=== PATIENT | female | born 1945 | race Caucasian/White ===

== ENCOUNTER 2020-04-12 19:32 | Inpatient (IN) | payer BC, OTHER ==
[~2020-04-12] VITALS: Ht 167.6 cm; Wt 81.7 kg
--- NOTE | 2020-04-12 20:12 | NUR ---
PT BIBPA FOR COUGH [id number]. PT DENIES YELLOW OR GREEN SPUTUM. PT AAOX4 VSS, BUT A FEVER OF 100.1. PT DENIES PAIN OR SOB. PT CONNECTED TO THE MONITOR AND POX. CALL LIGHT WITHIN REACH. WILL CONTINUE TO MONITOR.
--- NOTE | 2020-04-12 20:45 | NUR ---
covid swab collected and sent to lab
--- NOTE | 2020-04-12 22:09 | NUR ---
O2 SAT NOTED 92% ROOM AIR, PLACED ON 2L NC TOLERATING WELL O2 SAT 100%
--- NOTE | 2020-04-12 22:20 | NUR ---
IV INITIATED LAC 18G. LABS DRAWN FROM SITE. CIRCUS HAND AT BEDSIDE FOR COLLECTION. IV INTACT AND PATENT, PLACED ON SALINE LOCK
[2020-04-12 22:34] LABS: BASOPHILS # (AUTO) 0.1 /CMM (0.0-0.2); BASOPHILS % (AUTO) 0.9 % (0.0-2.0); EOSINOPHILS % (AUTO) 2.8 % (0.0-6.0); HEMATOCRIT 41 % (33-45); HEMOGLOBIN 13.7 g/dL (11.5-14.8); LYMPHOCYTES # (AUTO) 1.3 /CMM (0.8-4.8); LYMPHOCYTES % (AUTO) 19.3 % (20.0-44.0); MEAN CORPUSCULAR HGB CONC 33 g/dl (31.0-36.0); MEAN CORPUSCULAR VOLUME 91 fL (82-100); MONOCYTES # (AUTO) 0.7 /CMM (0.1-1.30); MONOCYTES % (AUTO) 10.2 % (2.0-12.0); NEUTROPHILS # (AUTO) 4.6 /CMM (1.8-8.9); NEUTROPHILS % (AUTO) 66.8 % (43.0-81.0); PLATELET COUNT (AUTO) 194 /CMM (150-450); RED BLOOD CELL COUNT(AUTO) 4.53 MIL/uL (4.0-5.2); WHITE BLOOD COUNT (AUTO) 6.9 K/uL (4.3-11.0)
[2020-04-12 22:49] LABS: CARBON DIOXIDE 29 mmol/L (21-32); CHLORIDE 104 mmol/L (98-107); CREATININE 1.3 mg/dL (0.6-1.3); GLUCOSE 93 mg/dL (74-106); POTASSIUM 4.2 mmol/L (3.5-5.1); SODIUM SERUM 140 mmol/L (136-145); UREA NITROGEN, BLOOD 16 mg/dL (7-18)
--- NOTE | 2020-04-12 22:53 | NUR ---
URINE COLLECTED AND SENT TO LAB
[2020-04-12 22:57] LABS: BILIRUBIN,URINE Negative (NEGATIVE); BLOOD, URINE Small Ery/uL (NEGATIVE); COLOR,URINE YELLOW (YELLOW); LEUKOCYTE ESTERASE ,URINE Small (NEGATIVE); NITRITE, URINE Positive (NEGATIVE); PH,URINE 5.5 (5.0-8.0); PROTEIN,URINE Negative (NEGATIVE); UGLUCOSE Negative (NEGATIVE); UROBILINOGEN,URINE 0.2 EU/dL (0.2)
[2020-04-12] MEDS ORDERED: DEXAMETHASONE SOD PHOSPHATE 10 MG/ML VIAL IV ONE (23:00)
[2020-04-12] MEDS ORDERED: AZITHROMYCIN 500 MG in IV D5W 250 ML IV ONE (23:00)
[2020-04-12 23:01] LABS: ALANINE AMINOTRANSFERASE 17 U/L (12-78); ALKALINE PHOSPHATASE 83 U/L (46-116); ASPARTATE AMINOTRANSFERASE 45 U/L (15-37); B-TYPE NATRIURETIC PEPTIDE 235 PG/ML (0-125); BILIRUBIN,TOTAL 0.6 mg/dL (0.2-1.0); TOTAL PROTEIN, SERUM 6.9 g/dL (6.4-8.2)
[2020-04-12] MEDS ORDERED: AZITHROMYCIN 500 MG VIAL ONE (23:17)
[2020-04-12 23:24] LABS: BACTERIA,URINE Many /HPF (None Seen); SQUAMOUS EPITHELIAL CELL,UR Few /HPF (None Seen); WBC,URINE TOO NUMEROUS TO COUN /HPF (0-3)
[2020-04-12] MEDS ORDERED: ONDANSETRON HCL/PF 4 MG/2 ML VIAL IVP PRN (23:30)
[2020-04-12] MEDS ORDERED: ALBUTEROL SULFATE 8 GM HFA.AER.AD IH PRN (23:30)
[2020-04-12] MEDS ORDERED: ACETAMINOPHEN 650 MG/SUPP.RECT RC PRN (23:30)
[2020-04-12 23:45] LABS: CREATINE KINASE, TOTAL 37 U/L (26-192); FERRITIN 119 ng/mL (8-388)
[2020-04-12 23:47] LABS: C-REACTIVE PROTEIN 1.5 mg/dL (0.0-0.9)
[2020-04-13 01:12] LABS: D-DIMER 0.85 mg/L(FEU (0.17-0.50)
[2020-04-13] MEDS ORDERED: CEFTRIAXONE 1GM BAG (ER ONLY) 50 ML IV ONE ×2 (02:57→23:43)
[2020-04-13] MEDS: CEFTRIAXONE 1 G in IV D5W 50 ML IV SCH (03:08)
--- NOTE | 2020-04-13 04:31 | NUR ---
PT RESTING COMFORTABLY IN BED. VITAL SIGNS STABLE. WILL CONTINUE TO MONITOR
[2020-04-13 05:51] LABS: BASOPHILS # (AUTO) 0.1 /CMM (0.0-0.2); BASOPHILS % (AUTO) 1.2 % (0.0-2.0); EOSINOPHILS % (AUTO) 3.4 % (0.0-6.0); HEMATOCRIT 42 % (33-45); HEMOGLOBIN 13.8 g/dL (11.5-14.8); LYMPHOCYTES # (AUTO) 1.3 /CMM (0.8-4.8); LYMPHOCYTES % (AUTO) 24.5 % (20.0-44.0); MEAN CORPUSCULAR HGB CONC 33 g/dl (31.0-36.0); MEAN CORPUSCULAR VOLUME 92 fL (82-100); MONOCYTES # (AUTO) 0.8 /CMM (0.1-1.30); MONOCYTES % (AUTO) 14.5 % (2.0-12.0); NEUTROPHILS % (AUTO) 56.4 % (43.0-81.0); PLATELET COUNT (AUTO) 179 /CMM (150-450); RED BLOOD CELL COUNT(AUTO) 4.59 MIL/uL (4.0-5.2); WHITE BLOOD COUNT (AUTO) 5.4 K/uL (4.3-11.0)
[2020-04-13 06:06] LABS: ALBUMIN 2.8 g/dL (3.4-5.0); BILIRUBIN,TOTAL 0.5 mg/dL (0.2-1.0); CALCIUM, SERUM 8.8 mg/dL (8.5-10.1); CREATININE 1.3 mg/dL (0.6-1.3); MAGNESIUM 2.1 mg/dL (1.8-2.4); PHOSPHORUS 3.2 mg/dL (2.5-4.9); POTASSIUM 4.1 mmol/L (3.5-5.1); TOTAL PROTEIN, SERUM 6.7 g/dL (6.4-8.2)
[2020-04-13 06:21] LABS: THYROID STIMULATING HORMONE 0.118 uIU/mL (0.358-3.74)
[2020-04-13] MEDS ORDERED: SENN-175 PO (08:04)
[2020-04-13] MEDS ORDERED: OMEP40CA13 PO (08:04)
[2020-04-13] MEDS ORDERED: ASPI-1169 PO (08:04)
[2020-04-13] MEDS ORDERED: TRAM50TA2 PO (08:04)
[2020-04-13] MEDS ORDERED: ROSU10TA29 PO (08:04)
[2020-04-13] MEDS ORDERED: LEVO100T9 PO (08:04)
[2020-04-13] MEDS ORDERED: IPRA3AMP22 IH (08:04)
[2020-04-13] MEDS ORDERED: MULT-439 PO (08:04)
[2020-04-13] MEDS ORDERED: CHOL500062 PO (08:04)
[2020-04-13] MEDS ORDERED: BUDE10.2 PO (08:04)
[2020-04-13] MEDS ORDERED: ASCO500C17 PO (08:04)
[2020-04-13] MEDS ORDERED: ZINC1CAP3 PO (08:04)
[2020-04-13] MEDS ORDERED: MAGN400O6 PO (08:04)
[2020-04-13] MEDS ORDERED: ACET325T53 PO (08:04)
--- NOTE | 2020-04-13 19:35 | NUR ---
Call from [facility] nurse outreach case manager. No bed available.
[2020-04-14] VITALS (7 sets, daily range): BP systolic 126–138; BP diastolic 63–84
[2020-04-14] MEDS ORDERED: AZITHROMYCIN 500 MG in IV D5W 250 ML IV SCH ×2
[2020-04-14] MEDS: CEFTRIAXONE 1 G in IV D5W 50 ML IV SCH ×2 (00:05→22:58)
--- NOTE | 2020-04-14 00:49 | NUR ---
REPORT GIVEN TO ORLANDO GEORGE FOR PRISCILLA.
--- NOTE | 2020-04-14 01:05 | NUR ---
PATIENT CAME FROM ER,AWAKE,A/O X2,FORGETFUL, WITH PERIODS OF CONFUSION. NO S/S OF DISTRESS NOTED. NO COMPLAIN OF PAIN. CALL LIGHT WITHIN REACH. BED ALARM ON. BED IN LOWEST AND LOCKED POSITION. WITH O2 AT 3L/MIN NASAL CANNULA.
--- NOTE | 2020-04-14 05:35 | NUR ---
med zithromax 500mg IV NOT AVAILABLE ON THE FLOOR, REQUEST FAXED TO NURSING TECHNOLOGY APPLICATIONS TEACHER.
--- NOTE | 2020-04-14 07:25 | NUR ---
BIOFUELS RESEARCH SCIENTIST NOTES PATIENT RECEIVED IN BED SLEEPING EASILY AWAKEN BY NAME AND LIGHT TOUCH, ALERT AND ORIENTED X 2, FORGETFUL BUT EASILY REORIENTED. PATIENT ON NASAL CANNULA 2 LITERS AT THIS TIME, WITH NO SIGNS OF RESPIRATORY DISTRESS WITH EVEN NON-LABORED BREATHING, AND NO SOB NOTED. ON MOTORCYLES FINAL INSPECTOR, SR 100. PATIENT SKIN WARM AND DRY TO TOUCH, IV ACCESS INTACT AND PATENT. PATIENT PRESENTING WITH NO PAIN OR DISCOMFORT AT THIS TIME. SAFETY PRECAUTIONS IMPLEMENTED WITH BED LOCKED, BED IN THE LOWEST POSITION, BED ALARM ON, BILATERAL SIDE RAILS UP, AND CALL LIGHT WITHIN EASY REACH OF PATENT. WILL CONTINUE TO MONITOR.
[2020-04-14] MEDS ORDERED: Medication Not On Formulary EA (Ipratropium/Albuterol Sulfate (Ipratr-Albuterol 0.5-3 Mg IH PRN (09:30)
[2020-04-14] MEDS ORDERED: SENNOSIDES 8.6 MG TABLET PO PRN (09:30)
[2020-04-14] MEDS ORDERED: ACETAMINOPHEN 325 MG TABLET PO PRN (09:30)
[2020-04-14] MEDS ORDERED: MAGNESIUM HYDROXIDE 30 ML UDC PO PRN (09:30)
[2020-04-14] MEDS ORDERED: ALBUTEROL FS 2.5 MG/0.5 ML VIAL.NEB NEB PRN (10:00)
[2020-04-14] MEDS ORDERED: IPRATROPIUM NEB FS 0.5 MG/2.5 ML AMPUL.NEB NEB PRN (10:00)
[2020-04-14] MEDS: PANTOPRAZOLE 40 MG TABLET.DR PO SCH (10:41)
[2020-04-14] MEDS: CHOLECALCIFEROL 1,000 UNIT TABLET (VIT D3) PO SCH (10:41)
[2020-04-14] MEDS: ZINC SULFATE 220 MG CAPSULE PO SCH (10:41)
[2020-04-14] MEDS: MULTIVIT W/MINERALS 1 TAB TABLET PO SCH (10:42)
[2020-04-14] MEDS: ASCORBIC ACID 500 MG TABLET PO SCH (10:42)
[2020-04-14] MEDS: LEVOTHYROXINE SODIUM 100 MCG TABLET PO SCH (10:42)
[2020-04-14] MEDS ORDERED: FLUTICASONE/VILANTEROL 1 EACH BLST.W.DEV IH SCH (14:00)
[2020-04-14] MEDS: ENOXAPARIN SODIUM 40 MG/0.4 ML DISP.SYRIN SQ SCH (15:36)
[2020-04-14] MEDS: FLUTICASONE/VILANTEROL 1 EACH BLST.W.DEV IH SCH (15:36)
--- NOTE | 2020-04-14 19:17 | NUR ---
BREWER HELPER NOTES PATIENT IN BED RESTING COMFORTABLY, ALERT AND ORIENTED X 2, FORGETFUL BUT EASILY REORIENTED. PATIENT ON ROOM AIR AT THIS TIME, WITH NO SIGNS OF RESPIRATORY DISTRESS WITH EVEN NON-LABORED BREATHING, AND NO SOB NOTED. ON SEISMIC PLOTTER, SR 93. PATIENT SKIN KEPT CLEAN, WARM AND DRY TO TOUCH, IV ACCESS INTACT AND PATENT. PATIENT PRESENTING WITH NO PAIN OR DISCOMFORT AT THIS TIME. SAFETY PRECAUTIONS IMPLEMENTED WITH BED LOCKED, BED IN THE LOWEST POSITION, BED ALARM ON, BILATERAL SIDE RAILS UP, AND CALL LIGHT WITHIN EASY REACH OF PATENT. WILL ENDORSE PLAN OF CARE TO UPCOMING RN.
--- NOTE | 2020-04-14 19:25 | NUR ---
TELE/RN OPENING NOTES: RECEIVED PT. A/OX2, FORGETFUL BUT EASILY ORIENTED. VERBALLY RESPONSIVE AND ABLE TO MAKE NEEDS KNOWN. NO SOB, NO S/S OF DISTRESS, BREATHING UNLABORED AND EVEN. ON ROOM AIR SATURATING AT 95%. ON TELE MONITORING WITH READING OF SR 70S. ON BED REST. SKIN INTACT, IV ON THE LEFT AC #18G SL, SAFETY MEASURES IN PLACE. BED IN LOW, LOCKED POSITION WITH SR UP X2. CALL LIGHT WITHIN REACH. WILL CONTINUE TO MONITOR ACCORDINGLY.
--- NOTE | 2020-04-14 21:14 | NUR ---
COVID -19 test is positive. Karen Centeno [facility] [phone] will not be able to admit back due to outbreak. Will coordinate with Danielle Jackson grp therapeutic case manager for SNF placement Addendum: 04/14/20 at 2115 by JINNY GARCIAS RN Amended: Links added.
[2020-04-14] MEDS: ATORVASTATIN 10 MG TABLET PO SCH (22:04)
--- NOTE | 2020-04-14 22:05 | NUR ---
TELE/RN NOTES: PT. TEMP IS 101. APPLIED COOLING MEASURES AND ADMINISTERED TYLENOL 650MG PO. TOLERATED WELL. WILL MONITOR ACCORDINGLY.
--- NOTE | 2020-04-14 23:30 | NUR ---
TELE/RN NOTES: TEMP NOW 98.2. PT STABLE. WILL CONTINUE TO MONITOR ACCORDINGLY.
[2020-04-15] VITALS: BP 116/72
[2020-04-15 04:00] VITALS: BP 144/69
[2020-04-15 06:50] LABS: BASOPHILS % (AUTO) 0.7 % (0.0-2.0); EOSINOPHILS % (AUTO) 0.3 % (0.0-6.0); HEMATOCRIT 45 % (33-45); HEMOGLOBIN 14.6 g/dL (11.5-14.8); LYMPHOCYTES # (AUTO) 1.9 /CMM (0.8-4.8); LYMPHOCYTES % (AUTO) 32.6 % (20.0-44.0); MEAN CORPUSCULAR HGB CONC 33 g/dl (31.0-36.0); MEAN CORPUSCULAR VOLUME 92 fL (82-100); MONOCYTES % (AUTO) 16.6 % (2.0-12.0); NEUTROPHILS % (AUTO) 49.8 % (43.0-81.0); PLATELET COUNT (AUTO) 171 /CMM (150-450); RED BLOOD CELL COUNT(AUTO) 4.86 MIL/uL (4.0-5.2)
[2020-04-15 07:06] LABS: CALCIUM, SERUM 8.8 mg/dL (8.5-10.1); CARBON DIOXIDE 31 mmol/L (21-32); CHLORIDE 105 mmol/L (98-107); CREATININE 1.4 mg/dL (0.6-1.3); GLUCOSE 87 mg/dL (74-106); POTASSIUM 4.6 mmol/L (3.5-5.1); SODIUM SERUM 142 mmol/L (136-145); UREA NITROGEN, BLOOD 20 mg/dL (7-18)
--- NOTE | 2020-04-15 07:10 | NUR ---
TELE/RN CLOSING NOTES: PT. REMAINS A/OX2, STILL FORGETFUL BUT EASILY ORIENTED. VERBALLY RESPONSIVE AND ABLE TO MAKE NEEDS KNOWN. NO SOB, NO S/S OF DISTRESS, BREATHING UNLABORED AND EVEN. ON ROOM AIR SATURATING AT 95%. ON TELE MONITORING WITH READING OF SR 74. ON BED REST. IV ON THE LEFT AC #18G SL, SAFETY MEASURES KEPT IN PLACE. BED IN LOW, LOCKED POSITION WITH SR UP X2. CALL LIGHT WITHIN REACH. ALL DUE MEDS GIVEN ORDERED. ALL NURSING NEEDS MET AND RENDERED. WILL ENDORSE TO DAY SHIFT FOR PRISCILLA.
--- NOTE | 2020-04-15 07:45 | NUR ---
ONLINE HEALTH AND FITNESS COACH OPEN NOTES PATIENT IS A/O X 2 WITH NO SIGNS OF DISTRESS IN ROOM AIR. IV L AC #18G SL. NO COMPLAIN OF PAIN AT THIS TIME. SAFETY MEASURES ARE APPLIED, BED IS IN LOW POSITION SIDE RAILS UP X 2. CALL LIGHT WITHIN REACH. WILL CONTINUE TO MONITOR.
[2020-04-15 08:00] VITALS: BP 133/77
[2020-04-15] MEDS: CHOLECALCIFEROL 1,000 UNIT TABLET (VIT D3) PO SCH (08:37)
[2020-04-15] MEDS: ASPIRIN 81 MG TAB.CHEW PO SCH (08:37)
[2020-04-15] MEDS: PANTOPRAZOLE 40 MG TABLET.DR PO SCH (08:38)
[2020-04-15] MEDS: LEVOTHYROXINE SODIUM 100 MCG TABLET PO SCH (08:38)
[2020-04-15] MEDS: ASCORBIC ACID 500 MG TABLET PO SCH (08:38)
[2020-04-15] MEDS: MULTIVIT W/MINERALS 1 TAB TABLET PO SCH (08:38)
[2020-04-15] MEDS: ZINC SULFATE 220 MG CAPSULE PO SCH (08:42)
[2020-04-15] MEDS: ENOXAPARIN SODIUM 40 MG/0.4 ML DISP.SYRIN SQ SCH (08:48)
[2020-04-15] MEDS: FLUTICASONE/VILANTEROL 1 EACH BLST.W.DEV IH SCH (08:51)
[2020-04-15] MEDS: LEVOTHYROXINE SODIUM 75 MCG TABLET PO SCH (09:03)
--- NOTE | 2020-04-15 10:00 | NUR ---
UNABLE TO GIVE DECADRON AT THIS TIME, OMNICELL IS OUT OF STOCK, PER PHARMACY THEY ARE STOCKING THE OMNICELL.
[2020-04-15 12:00] VITALS: BP_SYST 116; BP_SYST 117; BP_DIAS 67; BP_DIAS 69
[2020-04-15] MEDS: DEXAMETHASONE SOD PHOSPHATE 4 MG/ML VIAL IV SCH (12:17)
[2020-04-15 16:00] VITALS: BP 117/67
--- NOTE | 2020-04-15 19:00 | NUR ---
RN OPENING NOTES Received patient resting on bed. No s/sx of discomfort noted at this time. Kept on bed clean, dry and comfortable. On fall and aspiration precautions. Will continue to monitor accordingly.
--- NOTE | 2020-04-15 19:27 | NUR ---
HAND STRAIGHTENER CLOSED NOTES PATIENT IS A/O X 2 WITH NO SIGNS OF DISTRESS ON 3L OF NASAL CANNULA. NO COMPLAIN OF PAIN AT THIS TIME. TELE READING SR 81. PATIENT KEPT CLEAN AND DRY. ALL NEEDS, CARE, TREATMENT,AND MEDICATIONS WERE ADMINISTERED ANTICIPATED PER ORDER. SAFETY MEASURES ARE APPLIED, BED IS IN LOW POSITION SIDE RAILS UP X 2. CALL LIGHT WITHIN REACH WILL ENDORSE TO THE BLOW MOLD OPERATOR NURSE.
--- NOTE | 2020-04-15 19:57 | NUR ---
IV R FA #22G INTACT
[2020-04-15 20:00] VITALS: BP 108/66
[2020-04-15] MEDS: ATORVASTATIN 10 MG TABLET PO SCH (22:05)
[2020-04-15] MEDS: CEFTRIAXONE 1 G in IV D5W 50 ML IV SCH (22:50)
[2020-04-16] VITALS: BP 122/67
[2020-04-16 04:00] VITALS: BP 149/82
[2020-04-16 06:00] LABS: BASOPHILS % (AUTO) 0.4 % (0.0-2.0); EOSINOPHILS % (AUTO) 0.1 % (0.0-6.0); HEMATOCRIT 46 % (33-45); LYMPHOCYTES # (AUTO) 1.8 /CMM (0.8-4.8); LYMPHOCYTES % (AUTO) 37.9 % (20.0-44.0); MEAN CORPUSCULAR HGB CONC 33 g/dl (31.0-36.0); MEAN CORPUSCULAR VOLUME 92 fL (82-100); MONOCYTES # (AUTO) 0.6 /CMM (0.1-1.30); MONOCYTES % (AUTO) 13.8 % (2.0-12.0); NEUTROPHILS # (AUTO) 2.2 /CMM (1.8-8.9); NEUTROPHILS % (AUTO) 47.8 % (43.0-81.0); PLATELET COUNT (AUTO) 148 /CMM (150-450); RED BLOOD CELL COUNT(AUTO) 4.98 MIL/uL (4.0-5.2); WHITE BLOOD COUNT (AUTO) 4.7 K/uL (4.3-11.0)
[2020-04-16 06:29] LABS: ALBUMIN 2.6 g/dL (3.4-5.0); BILIRUBIN,TOTAL 0.4 mg/dL (0.2-1.0); CALCIUM, SERUM 8.6 mg/dL (8.5-10.1); CREATININE 1.1 mg/dL (0.6-1.3); POTASSIUM 4.6 mmol/L (3.5-5.1); TOTAL PROTEIN, SERUM 6.8 g/dL (6.4-8.2)
--- NOTE | 2020-04-16 06:38 | NUR ---
RN OPENING NOTES Received patient resting on bed. No s/sx of discomfort noted at this time. Kept on bed clean, dry and comfortable. On fall and aspiration precautions. Will continue to monitor accordingly. Addendum: 04/16/20 at 0639 by CANDELARIO BANERJEE RN wrong documentation
--- NOTE | 2020-04-16 06:45 | NUR ---
RN CLOSING NOTES Pt asleep on bed, no s/sx discomfort noted. No new unusualities noted. All nursing needs attended. Kept on bed clean, dry and comfortable. On fall and aspiration precautions. Endorsed.
--- NOTE | 2020-04-16 07:24 | NUR ---
LOAN AUDITOR OPEN NOTES PATIENT IS SLEEPING WITH NO SIGNS OF DISTRESS ON 2L OF NASAL CANNULA SPO2 97%. IV R FA #22G SL. NO COMPLAIN OF PAIN AT THIS TIME. TELE MONITOR NSR. SAFETY MEASURES ARE APPLIED, BED IS IN LOW POSITION SIDE RAILS UP X 2. CALL LIGHT WITHIN REACH. WILL CONTINUE TO MONITOR.
[2020-04-16 07:28] LABS: C-REACTIVE PROTEIN 3.6 mg/dL (0.0-0.9)
[2020-04-16] MEDS ORDERED: LEVOTHYROXINE SODIUM 75 MCG TABLET PO SCH (07:30)
[2020-04-16 08:00] VITALS: BP 144/57
[2020-04-16] MEDS: ASCORBIC ACID 500 MG TABLET PO SCH (08:22)
[2020-04-16] MEDS: PANTOPRAZOLE 40 MG TABLET.DR PO SCH (08:22)
[2020-04-16] MEDS: DEXAMETHASONE SOD PHOSPHATE 4 MG/ML VIAL IV SCH (08:22)
[2020-04-16] MEDS: ASPIRIN 81 MG TAB.CHEW PO SCH (08:22)
[2020-04-16] MEDS: ZINC SULFATE 220 MG CAPSULE PO SCH (08:22)
[2020-04-16] MEDS: CHOLECALCIFEROL 1,000 UNIT TABLET (VIT D3) PO SCH (08:22)
[2020-04-16] MEDS: MULTIVIT W/MINERALS 1 TAB TABLET PO SCH (08:22)
[2020-04-16] MEDS: LEVOTHYROXINE SODIUM 75 MCG TABLET PO SCH (08:22)
[2020-04-16] MEDS: ENOXAPARIN SODIUM 40 MG/0.4 ML DISP.SYRIN SQ SCH (08:25)
[2020-04-16] MEDS: FLUTICASONE/VILANTEROL 1 EACH BLST.W.DEV IH SCH (08:26)
[2020-04-16 16:00] VITALS: BP 158/79
--- NOTE | 2020-04-16 19:57 | NUR ---
METAPHYSICS TEACHER CLOSED NOTES PATIENT IS A/O X 2 WITH NO SIGNS OF DISTRESS ON 3L OF NASAL CANNULA. NO COMPLAIN OF PAIN AT THIS TIME. TELE READING SR. PATIENT KEPT CLEAN AND DRY. ALL NEEDS, CARE, TREATMENT,AND MEDICATIONS WERE ADMINISTERED ANTICIPATED PER ORDER. SAFETY MEASURES ARE APPLIED, BED IS IN LOW POSITION SIDE RAILS UP X 2. CALL LIGHT WITHIN REACH WILL ENDORSE TO THE WAREHOUSE DELIVERY MANAGER NURSE.
--- NOTE | 2020-04-16 19:58 | NUR ---
TELE/RN OPENING NOTES: RECEIVED PT. A/OX2, FORGETFUL BUT EASILY ORIENTED. VERBALLY RESPONSIVE AND ABLE TO MAKE NEEDS KNOWN. NO SOB, NO S/S OF DISTRESS, BREATHING UNLABORED AND EVEN. ON 2L O2 VIA NC SATURATING AT 94%. ON TELE MONITORING WITH READING OF SR 70S. ON BED REST. SKIN INTACT, IV ON THE LEFT AC #18G SL, SAFETY MEASURES IN PLACE. BED IN LOW, LOCKED POSITION WITH SR UP X2. CALL LIGHT WITHIN REACH. WILL CONTINUE TO MONITOR ACCORDINGLY.
[2020-04-16 20:00] VITALS: BP 135/107
[2020-04-16] MEDS: ATORVASTATIN 10 MG TABLET PO SCH (23:12)
[2020-04-16] MEDS: CEFTRIAXONE 1 G in IV D5W 50 ML IV SCH (23:12)
[2020-04-17] VITALS: BP 132/97
[2020-04-17 04:00] VITALS: BP_SYST 144; BP_DIAS 72; BP_DIAS 75
--- NOTE | 2020-04-17 06:49 | NUR ---
TELE/RN OPENING NOTES: PT. REMAINS A/OX2, FORGETFUL BUT EASILY ORIENTED. VERBALLY RESPONSIVE AND ABLE TO MAKE NEEDS KNOWN. NO SOB, NO S/S OF DISTRESS, BREATHING UNLABORED AND EVEN. ON 2L O2 VIA NC SATURATING AT 97%. ON TELE MONITORING WITH READING OF SR 70S. ON BED REST. SKIN INTACT, IV ON THE LEFT AC #18G SL, SAFETY MEASURES IN PLACE. BED IN LOW, LOCKED POSITION WITH SR UP X2. CALL LIGHT WITHIN REACH. NO CONCERNS OR ISSUES ADDRESSED AT THIS TIME. WILL ENDORSE TO DAY SHIFT FOR PRISCILLA.
--- NOTE | 2020-04-17 06:58 | NUR ---
TELE/RN CLOSING NOTES: PT. REMAINS A/OX2, FORGETFUL BUT EASILY ORIENTED. VERBALLY RESPONSIVE AND ABLE TO MAKE NEEDS KNOWN. NO SOB, NO S/S OF DISTRESS, BREATHING UNLABORED AND EVEN. ON 2L O2 VIA NC SATURATING AT 97%. TITRATED TOLERATED. ON TELE MONITORING WITH READING OF SR 70S. ON BED REST. SKIN INTACT, IV ON THE LEFT AC #18G SL, SAFETY MEASURES IN PLACE. BED IN LOW, LOCKED POSITION WITH SR UP X2. CALL LIGHT WITHIN REACH. ALL NEEDS MET AND RENDERED. KEPT CLEAN AND DRY AT ALL TIMES. ALL DUE MEDS GIVEN ORDERED. NO CONCERNS OR ISSUES ADDRESSED AT THIS TIME. WILL ENDORSE TO DAY SHIFT FOR PRISCILLA.
[2020-04-17 08:00] VITALS: BP 136/71
[2020-04-17] MEDS: PANTOPRAZOLE 40 MG TABLET.DR PO SCH (08:11)
[2020-04-17] MEDS: LEVOTHYROXINE SODIUM 75 MCG TABLET PO SCH (08:11)
--- NOTE | 2020-04-17 08:35 | NUR ---
RN Opening note Received patient in bed AO x able to responds all stimuli, does no c/o pain or discomfort. Skin is warm to touch keep clean/dry, intact IV sit. Respiratory even and unlabored with oxygen at 2LPM via n/c, no sob or distress observed. Kept bed locked with elevated HOB for ensure airway and aspiration precaution also lowest bed position for safety. Call light within reach will continue to monitor.
[2020-04-17] MEDS: CHOLECALCIFEROL 1,000 UNIT TABLET (VIT D3) PO SCH (08:59)
[2020-04-17] MEDS: ASPIRIN 81 MG TAB.CHEW PO SCH (08:59)
[2020-04-17] MEDS: MULTIVIT W/MINERALS 1 TAB TABLET PO SCH (09:00)
[2020-04-17] MEDS: ASCORBIC ACID 500 MG TABLET PO SCH (09:00)
[2020-04-17] MEDS: ZINC SULFATE 220 MG CAPSULE PO SCH (09:00)
[2020-04-17] MEDS: DEXAMETHASONE SOD PHOSPHATE 4 MG/ML VIAL IV SCH (09:08)
[2020-04-17] MEDS: FLUTICASONE/VILANTEROL 1 EACH BLST.W.DEV IH SCH (09:21)
[2020-04-17] MEDS: ENOXAPARIN SODIUM 40 MG/0.4 ML DISP.SYRIN SQ SCH (10:16)
[2020-04-17 16:00] VITALS: BP 147/74
--- NOTE | 2020-04-17 19:00 | NUR ---
Patient discharge to [facility] and spoke with Arlene but they said there's no patient name and bed, informed CM and who spoke with them. CM will call back us later.
--- NOTE | 2020-04-17 19:50 | NUR ---
EMT ARRIVED FOR PATIENT PICKUP. DISCHARGE DELAYED NO BED AVAILABLE. SPOKE WITH KIERRA ARANA OR [facility] SPOKE WITHNURSE WHATLEY. CONFIRMED FACILITY DOES NOT HAVE FEMALE BED FOR THE PATIENT. DIRECTOR GEOTHERMAL OPERATIONS CAME FOR SKI LIFT MECHANIC BUT SENT AWAY UNTIL OTHER ARRANGEMENTS MADE.
[2020-04-17] MEDS: CEFTRIAXONE 1 G in IV D5W 50 ML IV SCH (22:35)
[2020-04-17] MEDS: ATORVASTATIN 10 MG TABLET PO SCH (22:36)
[2020-04-18] VITALS: BP 128/58
[2020-04-18 04:00] VITALS: BP 141/66
[2020-04-18] MEDS: LEVOTHYROXINE SODIUM 75 MCG TABLET PO SCH (07:43)
[2020-04-18] MEDS: PANTOPRAZOLE 40 MG TABLET.DR PO SCH (07:43)
--- NOTE | 2020-04-18 07:50 | NUR ---
RN Opening note Received patient in bed AO x 2-3 able to responds all stimuli, does no c/o pain or discomfort. Skin is warm to touch keep clean/dry, intact IV sit. Respiratory even and unlabored with oxygen at 2LPM via n/c, no sob or distress observed. Kept bed locked with elevated HOB for ensure airway and aspiration precaution also lowest bed position for safety. Call light within reach will continue to monitor.
[2020-04-18 08:00] VITALS: BP 135/73
[2020-04-18] MEDS: MULTIVIT W/MINERALS 1 TAB TABLET PO SCH (08:20)
[2020-04-18] MEDS: CHOLECALCIFEROL 1,000 UNIT TABLET (VIT D3) PO SCH (08:20)
[2020-04-18] MEDS: ASCORBIC ACID 500 MG TABLET PO SCH (08:20)
[2020-04-18] MEDS: DEXAMETHASONE SOD PHOSPHATE 4 MG/ML VIAL IV SCH (08:20)
[2020-04-18] MEDS: ZINC SULFATE 220 MG CAPSULE PO SCH (08:20)
[2020-04-18] MEDS: ASPIRIN 81 MG TAB.CHEW PO SCH (08:20)
[2020-04-18] MEDS: ENOXAPARIN SODIUM 40 MG/0.4 ML DISP.SYRIN SQ SCH (08:21)
[2020-04-18] MEDS: FLUTICASONE/VILANTEROL 1 EACH BLST.W.DEV IH SCH (08:41)
[2020-04-18 12:00] VITALS: BP 137/78
--- NOTE | 2020-04-18 12:02 | NUR ---
Patient going discharge to [facility] room 9B and given report Nona/RN.
[2020-04-18 16:00] VITALS: BP 133/93
--- NOTE | 2020-04-18 17:00 | NUR ---
2EMTs picked up patient and given report, patient in stable condition. Last vital sign:t-97.2, bp-133/93, P-71, O2sat 93% on room air, no sob or distress observed. Skin is warm to touch, kept clean/dry.
== END 2020-04-18 15:00 | DRG 177 ==
LOC: ER 19:34 → OBSER 04-13 05:24 → TELE2 04-13 23:50
PROVIDERS: ADMIT Registered Nurse; ATTEND Internal Medicine
DX: U07.1 COVID-19 (principal); J12.89 Other viral pneumonia; J96.01 Acute respiratory failure with hypoxia; N39.0 Urinary tract infection, site not specified; N17.9 Acute kidney failure, unspecified; F03.90 Unspecified dementia, unspecified severity, without behavioral disturbance, psychotic disturbance, mood disturbance, and anxiety; E66.9 Obesity, unspecified; E03.9 Hypothyroidism, unspecified; Z87.891 Personal history of nicotine dependence; E78.5 Hyperlipidemia, unspecified; B96.20 Unspecified Escherichia coli [E. coli] as the cause of diseases classified elsewhere; Z74.01 Bed confinement status; Z68.29 Body mass index [BMI] 29.0-29.9, adult
CPT/HCPCS: 36415; 71045-TC; 80048-TC; 80053-TC; 80061-TC; 81001; 82550-TC; 82728-TC; 83605-TC; 83615-TC; 83735-TC; 83880; 84100-TC; 84443-TC; 84484-TC; 85025-TC; 85378-TC; 85730-TC; 86140-TC; 87040-TC; 87081-TC; 87086-TC; 87186-TC; 97112-TC; 97530-TC; C9803; G0378; J0456; J0696; J1100; J1650; J2405; J7050; J7060; U0003

== ENCOUNTER 2021-02-18 14:28 | Inpatient (IN) | payer MEDICARE, OTHER ==
[2021-02-17 20:00] VITALS: BP 111/87
[~2021-02-18] VITALS: Ht 167.6 cm; Wt 71.2 kg
[~2021-02-18 14:28] MED LIST: ACET325T53 PO; ASCO500C17 PO; ASPI-1169 PO; BUDE10.2 PO; CHOL500062 PO; IPRA3AMP22 IH; LEVO100T9 PO; MAGN400O6 PO; MULT-439 PO; OMEP40CA21 PO; ROSU10TA29 PO; SENN-175 PO; TRAM50TA2 PO; ZINC1CAP3 PO
--- NOTE | 2021-02-18 14:55 | NUR ---
bib PA frm SKILLED NURSING, nausea and vomiting since AM. 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 On room air, breathing evenly and unlabored. Connected to the monitor and pulse ox. kept comfortable, will continue to monitor accordingly. IV started on the LAC and blood drawned and sent to lab.
[2021-02-18 14:59] LABS: BASOPHILS % (AUTO) 0.1 % (0.0-2.0); HEMATOCRIT 47 % (33-45); LYMPHOCYTES # (AUTO) 0.5 K/uL (0.8-4.8); MEAN CORPUSCULAR HGB CONC 32 g/dl (31.0-36.0); MEAN CORPUSCULAR VOLUME 93 fL (82-100); MONOCYTES # (AUTO) 0.8 K/uL (0.1-1.30); MONOCYTES % (AUTO) 3.5 % (2.0-12.0); NEUTROPHILS # (AUTO) 22.3 K/uL (1.8-8.9); NEUTROPHILS % (AUTO) 94.4 % (43.0-81.0); PLATELET COUNT (AUTO) 191 K/uL (150-450); WHITE BLOOD COUNT (AUTO) 23.7 K/uL (4.3-11.0)
[2021-02-18 15:14] LABS: ALBUMIN 3.1 g/dL (3.4-5.0); BILIRUBIN,DIRECT 0.2 mg/dL (0.0-0.2); BILIRUBIN,TOTAL 2.1 mg/dL (0.2-1.0); CALCIUM, SERUM 8.7 mg/dL (8.5-10.1); CREATININE 1.1 mg/dL (0.6-1.3); TOTAL PROTEIN, SERUM 7.5 g/dL (6.4-8.2)
[2021-02-18 15:22] LABS: POTASSIUM 4.7 mmol/L (3.5-5.1)
[2021-02-18] MEDS ORDERED: IOHEXOL-300 100 ML VIAL IV ONE ×2 (15:23→15:24)
[2021-02-18] MEDS ORDERED: IV NS 0.9% 0 ML IV ONE (15:23)
[2021-02-18] MEDS ORDERED: IV NS 0.9% 250 ML IV ONE (15:24)
[2021-02-18] MEDS ORDERED: CT SWABBABLE VALVE TRANS SET 1 EA INFUS.SET MC ONE (15:24)
[2021-02-18] MEDS ORDERED: ONDANSETRON HCL/PF 4 MG/2 ML VIAL ONE (15:26)
[2021-02-18] MEDS ORDERED: MEROPENEM 1,000 MG in IV NS 0.9% 100 ML IV ONE (15:30)
[2021-02-18] MEDS ORDERED: ONDANSETRON HCL/PF - ER 4 MG/2 ML VIAL IV ONE (15:30)
--- NOTE | 2021-02-18 15:52 | NUR ---
PADMAJA PATEL FROM [facility] [phone] NURSE NAVIGATOR
[2021-02-18] MEDS ORDERED: VANCOMYCIN 1 GM in IV D5W 250 ML IV ONE (16:00)
--- NOTE | 2021-02-18 16:32 | NUR ---
UROLOGY CALLED. DR. MAKI SPEAKING WITH DR. MANSFIELD.
[2021-02-18 16:34] LABS: BILIRUBIN,URINE NEGATIVE (NEGATIVE); COLOR,URINE YELLOW (YELLOW); LEUKOCYTE ESTERASE ,URINE SMALL (NEGATIVE); NITRITE, URINE POSITIVE (NEGATIVE); PROTEIN,URINE NEGATIVE (NEGATIVE); UGLUCOSE NEGATIVE (NEGATIVE)
[2021-02-18 16:47] LABS: BACTERIA,URINE 2+ /HPF (None Seen); WBC,URINE 21-50 /HPF (0-3)
--- NOTE | 2021-02-18 17:11 | NUR ---
luciano gunn (medical dpoa) [phone]
[2021-02-18] MEDS ORDERED: FAMOTIDINE/PF INJ 20 MG/2 ML VIAL IV ONE (17:47)
--- NOTE | 2021-02-18 18:09 | NUR ---
patient wheeled via gurney going to surgery accompanied by 2 surgery RN in no distress, patient will go to room 307 after the procedure. Consent signed with telephone consent with Angela gunn (medical DPOA).
[2021-02-18] MEDS ORDERED: IOHEXOL 240MG/ML 0 ML IV ONE (18:15)
[2021-02-18] MEDS ORDERED: FENTANYL PF 100MCG/2ML AMPUL ONE (18:27)
[2021-02-18] MEDS ORDERED: ONDANSETRON HCL/PF 4 MG/2 ML VIAL IVP PRN (18:30)
[2021-02-18] MEDS ORDERED: ACETAMINOPHEN 325 MG TABLET PO PRN (18:30)
[2021-02-18 20:00] VITALS: BP 111/87
[2021-02-18 20:15] VITALS: BP 80/45
[2021-02-18 20:30] VITALS: BP 101/50
[2021-02-18 21:00] VITALS: BP 80/41
[2021-02-18 22:00] VITALS: BP 109/54
[2021-02-18] MEDS: IV NS 0.9% 1,000 ML IV PRN (22:04)
[2021-02-19] VITALS: BP_SYST 90; BP_DIAS 53; BP_DIAS 58
[2021-02-19] MEDS: MEROPENEM 1 G in IV NS 0.9% 100 ML IV SCH ×2 (02:27→15:11)
[2021-02-19 04:00] VITALS: BP 99/69
[2021-02-19] MEDS: IV NS 0.9% 1,000 ML IV PRN ×2 (05:21→18:04)
[2021-02-19 05:51] LABS: BASOPHILS # (AUTO) 0.1 K/uL (0.0-0.2); BASOPHILS % (AUTO) 0.2 % (0.0-2.0); HEMATOCRIT 40 % (33-45); HEMOGLOBIN 13.2 g/dL (11.5-14.8); LYMPHOCYTES # (AUTO) 0.6 K/uL (0.8-4.8); MEAN CORPUSCULAR HGB CONC 33 g/dl (31.0-36.0); MEAN CORPUSCULAR VOLUME 93 fL (82-100); NEUTROPHILS # (AUTO) 30.1 K/uL (1.8-8.9); NEUTROPHILS % (AUTO) 94.8 % (43.0-81.0); PLATELET COUNT (AUTO) 138 K/uL (150-450); RED BLOOD CELL COUNT(AUTO) 4.33 MIL/uL (4.0-5.2)
--- NOTE | 2021-02-19 06:03 | NUR ---
MS RN NOTES AWAKE & RESPONSIVE. NOT IN ANY DISTRESS. NO SOB NOTED. DENIES ANY PAIN OR DISCOMFORT AT THIS TIME. WITH IVF INFUSING WELL. MONITORED ACCORDINGLY. CALL LIGHT WITHIN REACH. BED IN LOWEST POSITION. SR UP X 3 WITH BED ALARM ON FOR SAFETY. WILL ENDORSE TO NEXT SHIFT.
--- NOTE | 2021-02-19 06:18 | NUR ---
MS RN NOTES BC 2 SETS GRAM NEGATIVE RODS. NESTOR MINAYA AWARE. CURRENTLY ON VANCO AND MERREM. NNO AT THIS TIME. WILL CONTINUE TO MONITOR.
[2021-02-19 06:29] LABS: CHOLESTEROL 67 mg/dL (<200); HDL CHOLESTEROL 47 mg/dL (40-60); LDL 18 mg/dL (0-99); TRIGLYCERIDES 47 mg/dL (30-150)
[2021-02-19 06:32] LABS: CALCIUM, SERUM 7.8 mg/dL (8.5-10.1); CARBON DIOXIDE 26 mmol/L (21-32); CHLORIDE 108 mmol/L (98-107); CREATININE 1.4 mg/dL (0.6-1.3); GLUCOSE 116 mg/dL (74-106); MAGNESIUM 1.8 mg/dL (1.8-2.4); PHOSPHORUS 3.2 mg/dL (2.5-4.9); POTASSIUM 4.5 mmol/L (3.5-5.1); SODIUM SERUM 140 mmol/L (136-145); UREA NITROGEN, BLOOD 22 mg/dL (7-18)
[2021-02-19 06:36] LABS: WHITE BLOOD COUNT (AUTO) 31.7 K/uL (4.3-11.0)
--- NOTE | 2021-02-19 06:39 | NUR ---
WOOD EXPERIMENTAL MECHANIC NOTES WBC 31.7 NOTIFIED NESTOR SWEATBAND DECORATING MACHINE OPERATOR FOR EPIC. WITH NEW ORDERS TO F/U WITH ID IN AM. WILL ENDORSE TO NEXT SHIFT.
--- NOTE | 2021-02-19 07:43 | NUR ---
RN NOTES RECEIVED PATIENT RESTING IN BED, NOT IN ANY DISTRESS. NO SOB NOTED. NO S/SX OF ANY PAIN OR DISCOMFORT AT THIS TIME. WITH LAC SL, IVF OF NS @100CC/HOUR ONGOING, INFUSING WELL. CALL LIGHT WITHIN REACH. BED IN LOWEST POSITION. SR UP X 3 WITH BED ALARM ON FOR SAFETY. WILL CONTINUE TO MONITOR.
[2021-02-19 07:52] LABS: BAND % (MANUAL) 9 % (0.0-5.0); LYMPHOCYTES % (MANUAL) 1 % (16-48); NEUTROPHILS % (MANUAL) 90 (42-76)
[2021-02-19 08:00] VITALS: BP 105/50
[2021-02-19] MEDS ORDERED: DICL100G34 TP (08:12)
[2021-02-19] MEDS ORDERED: ASPI-1420 PO (08:12)
[2021-02-19] MEDS ORDERED: DOCU-141 PO (08:12)
[2021-02-19] MEDS ORDERED: MENT3.5O TP (08:12)
[2021-02-19] MEDS ORDERED: BUSP5TAB3 PO (08:12)
[2021-02-19] MEDS ORDERED: FAMO20TA8 PO (08:12)
--- NOTE | 2021-02-19 08:15 | NUR ---
WOUND CARE CONSULT: PT PRESENTS WITH SACRAL SCARRING, PRESENT ON ADMISSION. PT NOTED TO BE INCONTINENT. PT IS ON KINGS ISOFLEX LOW AIRLOSS BED. RECOMMENDATIONS MADE FOR SKIN PROTECTION. DISCUSSED WITH NURSING STAFF. MD IN AGREEMENT WITH PLAN OF CARE.
[2021-02-19] MEDS ORDERED: Z GUARD REMEDY 2 OZ OINT TP PRN (08:30)
--- NOTE | 2021-02-19 09:43 | NUR ---
RN NOTES DR. APPLE IN THE UNIT TO SEE THE PATIENT; INFORMED ABOUT MED RECON.
[2021-02-19] MEDS ORDERED: Medication Not On Formulary EA (Budesonide/Formoterol Fumarate (Symbicort 160-4.5 Mcg In PO SCH (10:00)
[2021-02-19] MEDS ORDERED: DICLOFENAC TOPICAL 100 GM GEL..GM. TP PRN (10:00)
[2021-02-19] MEDS ORDERED: DOCUSATE SODIUM 100 MG CAPSULE PO PRN (10:00)
[2021-02-19] MEDS ORDERED: SENNOSIDES 8.6 MG TABLET PO PRN (10:00)
[2021-02-19] MEDS: LEVOTHYROXINE SODIUM 100 MCG TABLET PO SCH (10:54)
[2021-02-19] MEDS: FAMOTIDINE (20 MG) 20 MG TABLET PO SCH (10:55)
[2021-02-19] MEDS: Z GUARD REMEDY 2 OZ OINT TP SCH (11:47)
[2021-02-19 11:57] VITALS: BP 137/56
--- NOTE | 2021-02-19 12:00 | NUR ---
RN NOTES SPOKE W/ ESTEFANI LOPEZ ([phone]), POWER OF BRAIDING MACHINE OPERATOR, AND SONA FIGUEROA ([phone]), MEDICAL DECISION-MAKER OF PATIENT. INFORMED ABOUT PLAN OF CARE AND CURRENT PROGRESS OF PATIENT.
[2021-02-19 16:00] VITALS: BP 120/70
[2021-02-19] MEDS ORDERED: VANCOMYCIN 1 GM in IV D5W 250 ML IV SCH (17:00)
--- NOTE | 2021-02-19 18:54 | NUR ---
RN NOTES PATIENT RESTING IN BED, JUST FINISHED EATING DINNER; ABLE TO CONSUME MEALS W/ MIN ASSIST. BREATHING EVEN AND UNLABORED, CONTINUES ON O2 AT 3L/MIN VIA N/C, NO RESPIRATORY DISTRESS. IVF INFUSING WELL. REPOSITIONED IN BED FOR COMFORT. SEEN BY DR. KAHN TODAY AND MADE AWARE OF STENT PLACEMENT. SAFETY MEASURES MAINTAINED. WILL ENDORSE TO PANAMA HAT SMEARER RN FOR PRISCILLA.
--- NOTE | 2021-02-19 19:20 | NUR ---
MS RN OPENING NOTES: RECEIVED PATIENT IN BED, AWAKE, A/O X2. NO S/S OF DISTRESS NOTED. CALL LIGHT WITHIN REACH. BED ALARM ON. BED IN LOWEST AND LOCKED POSITION. HOB ELEVATED.
[2021-02-19 20:00] VITALS: BP 150/90
[2021-02-19] MEDS: ATORVASTATIN 10 MG TABLET PO SCH (21:53)
[2021-02-20] MEDS: MEROPENEM 1 G in IV NS 0.9% 100 ML IV SCH ×2 (04:22→14:23)
[2021-02-20] MEDS: IV NS 0.9% 1,000 ML IV PRN ×2 (04:33→16:05)
[2021-02-20 06:22] LABS: BASOPHILS % (AUTO) 0.2 % (0.0-2.0); EOSINOPHILS % (AUTO) 0.4 % (0.0-6.0); HEMATOCRIT 38 % (33-45); HEMOGLOBIN 12.2 g/dL (11.5-14.8); LYMPHOCYTES # (AUTO) 1.2 K/uL (0.8-4.8); LYMPHOCYTES % (AUTO) 6.1 % (20.0-44.0); MEAN CORPUSCULAR HGB CONC 32 g/dl (31.0-36.0); MEAN CORPUSCULAR VOLUME 95 fL (82-100); MONOCYTES # (AUTO) 0.9 K/uL (0.1-1.30); MONOCYTES % (AUTO) 4.8 % (2.0-12.0); NEUTROPHILS # (AUTO) 17.5 K/uL (1.8-8.9); NEUTROPHILS % (AUTO) 88.5 % (43.0-81.0); PLATELET COUNT (AUTO) 116 K/uL (150-450); RED BLOOD CELL COUNT(AUTO) 4.02 MIL/uL (4.0-5.2); WHITE BLOOD COUNT (AUTO) 19.8 K/uL (4.3-11.0)
--- NOTE | 2021-02-20 06:41 | NUR ---
MS RN CLOSING NOTES: PATIENT IN BED, ASLEEP. NO S/S OF DISTRESS NOTED. NO COMPLAIN OF PAIN. CALL LIGHT WITHIN REACH. BED IN LOWEST AND LOCKED POSITION. BED ALARM ON. HOB ELEVATED AT ALL TIMES./ HEELS OFFLOADED WITH PILLOW.
[2021-02-20 07:00] LABS: CALCIUM, SERUM 7.6 mg/dL (8.5-10.1); MAGNESIUM 1.9 mg/dL (1.8-2.4); PHOSPHORUS 2.3 mg/dL (2.5-4.9); POTASSIUM 3.9 mmol/L (3.5-5.1)
--- NOTE | 2021-02-20 07:38 | NUR ---
RN OPENING NOTES Patient seen comfortably lying in bed, no SOB, no apparent distress noted, breathing even and unlabored, denies any pain or discomfort at this time. Call light left within reach, safety precautions in place, brakes locked, side rails up X 2, will monitor closely for any changes.
[2021-02-20] MEDS: LEVOTHYROXINE SODIUM 100 MCG TABLET PO SCH (07:57)
[2021-02-20] MEDS: FAMOTIDINE (20 MG) 20 MG TABLET PO SCH (07:57)
[2021-02-20 08:00] VITALS: BP 124/66
[2021-02-20] MEDS: ASPIRIN EC 81 MG TABLET.DR PO SCH (08:01)
[2021-02-20] MEDS: Z GUARD REMEDY 2 OZ OINT TP SCH (08:01)
[2021-02-20] MEDS: ALBUTEROL FS 2.5 MG/3 ML VIAL.NEB NEB SCH ×3 (08:26→20:16)
[2021-02-20] MEDS: BUDESONIDE RESPULE INH 0.5 MG/2 ML AMPUL.NEB IH SCH ×2 (08:26→17:00)
[2021-02-20] MEDS ORDERED: K PHOS NEUTRAL 250 MG TABLET PO ONE (10:00)
[2021-02-20] MEDS: ENSURE ENLIVE CHOC 237 ML CAN PO SCH ×2 (14:23→17:03)
[2021-02-20 16:17] VITALS: BP 143/97
--- NOTE | 2021-02-20 18:28 | NUR ---
RN CLOSING NOTES Patient lying in bed, AO X 2, with episodes of forgetfulness, reorientation provided as needed, can follow commands, able to make needs known, no apparent distress noted, no SOB, respirations even and unlabored, denies any pain or discomfort. All medications given per MD order, tolerating well, all needs anticipated, kept clean and dry, safety precautions in place, brakes locked, side rails up X 2, call light left within reach, will endorse to next shift for continuity of care.
--- NOTE | 2021-02-20 19:10 | NUR ---
MS RN OPENING NOTES: RECEIVED PATIENT IN BED, AWAKE, A/O X1. NO S/S OF DISTRESS NOTED. NO COMPLAIN OF PAIN. CALL LIGHT WITHIN REACH. BED ALARM ON. BED IN LOWEST AND LOCKED POSITION. HEELS OFFLOADED.
[2021-02-20 20:00] VITALS: BP 145/78
[2021-02-20] MEDS: ATORVASTATIN 10 MG TABLET PO SCH (21:44)
[2021-02-21] MEDS: ALBUTEROL FS 2.5 MG/3 ML VIAL.NEB NEB SCH ×4 (01:30→19:54)
[2021-02-21] MEDS: IV NS 0.9% 1,000 ML IV PRN ×2 (01:31→11:11)
--- NOTE | 2021-02-21 02:22 | NUR ---
pt refused 0130 albuterol breathing tx. pt sleeping
[2021-02-21] MEDS: MEROPENEM 1 G in IV NS 0.9% 100 ML IV SCH ×2 (03:09→14:13)
--- NOTE | 2021-02-21 06:03 | NUR ---
MS RN CLOSING NOTES: PATIENT IN BED, ASLEEP, EASILY AROUSABLE. NO S/S OF DISTRESS NOTED. NO COMPLAIN OF PAIN. CALL LIGHT WITHIN REACH. BED IN LOWEST AND LOCKED POSITION. BED ALARM ON. HEELS OFFLOADED. TURNED AND REPOSITIONED [id number].
[2021-02-21 06:26] LABS: BASOPHILS % (AUTO) 0.3 % (0.0-2.0); EOSINOPHILS % (AUTO) 1.3 % (0.0-6.0); HEMATOCRIT 35 % (33-45); HEMOGLOBIN 11.6 g/dL (11.5-14.8); LYMPHOCYTES # (AUTO) 0.9 K/uL (0.8-4.8); LYMPHOCYTES % (AUTO) 9.3 % (20.0-44.0); MEAN CORPUSCULAR HGB CONC 33 g/dl (31.0-36.0); MEAN CORPUSCULAR VOLUME 94 fL (82-100); MONOCYTES # (AUTO) 0.6 K/uL (0.1-1.30); MONOCYTES % (AUTO) 6.8 % (2.0-12.0); NEUTROPHILS # (AUTO) 7.8 K/uL (1.8-8.9); NEUTROPHILS % (AUTO) 82.3 % (43.0-81.0); PLATELET COUNT (AUTO) 113 K/uL (150-450); RED BLOOD CELL COUNT(AUTO) 3.71 MIL/uL (4.0-5.2); WHITE BLOOD COUNT (AUTO) 9.4 K/uL (4.3-11.0)
[2021-02-21 06:50] LABS: CALCIUM, SERUM 7.7 mg/dL (8.5-10.1); CREATININE 0.8 mg/dL (0.6-1.3); POTASSIUM 3.7 mmol/L (3.5-5.1)
--- NOTE | 2021-02-21 07:30 | NUR ---
MS RN OPENING NOTES RECEIVED PATIENT ON BED, AWAKE AND A/O X2. ON 02 AT 3LPM VIA NASAL CANNULA, TOLERATING WELL. NO SOB NOTED. NOT IN DISTRESS. WITH NO COMPLAINTS OF PAIN AT THIS TIME. WITH IV ACCESS AT RIGHT HAND WITH IVF NS AT 100ML/HR. SAFETY MEASURES IN PLACE. CALL LIGHT WITHIN REACH. BED ON LOWEST AND LOCKED POSITION, SIDE RAILS UP X2. WILL CONTINUE TO MONITOR.
[2021-02-21] MEDS: LEVOTHYROXINE SODIUM 100 MCG TABLET PO SCH (07:57)
[2021-02-21] MEDS: FAMOTIDINE (20 MG) 20 MG TABLET PO SCH (07:57)
[2021-02-21 08:00] VITALS: BP 135/78
[2021-02-21] MEDS: ASPIRIN EC 81 MG TABLET.DR PO SCH (08:00)
[2021-02-21] MEDS: ENSURE ENLIVE CHOC 237 ML CAN PO SCH ×2 (08:01→16:50)
[2021-02-21] MEDS: Z GUARD REMEDY 2 OZ OINT TP SCH (08:05)
[2021-02-21] MEDS: BUDESONIDE RESPULE INH 0.5 MG/2 ML AMPUL.NEB IH SCH ×2 (08:08→16:48)
[2021-02-21] MEDS ORDERED: K PHOS NEUTRAL 250 MG TABLET PO ONE (12:00)
[2021-02-21 16:00] VITALS: BP 140/66
--- NOTE | 2021-02-21 17:50 | NUR ---
MS RN NOTE WITH LEAKING IV SITE. REINSERTED IV AT LEFT HAND G22.
--- NOTE | 2021-02-21 18:29 | NUR ---
MS RN CLOSING NOTES PATIENT ON BED, AWAKE AND A/O X3. ON 0ROOM AIR, TOLERATING WELL. NO SOB NOTED. NOT IN DISTRESS. WITH NO COMPLAINTS OF PAIN AT THIS TIME. WITH IV ACCESS AT LEFT HAND G22 WITH IVF NS AT 100ML/HR. SAFETY MEASURES IN PLACE. CALL LIGHT WITHIN REACH. BED ON LOWEST AND LOCKED POSITION, SIDE RAILS UP X2. WILL ENDORSE TO NEXT SHIFT FOR PRISCILLA.
--- NOTE | 2021-02-21 19:10 | NUR ---
MS RN OPENING NOTES: RECEIVED PATIENT IN BED, AWAKE, A/O X2. NO S/S OF DISTRESS NOTED. NO COMPLAIN OF PAIN. CALL LIGHT WITHIN REACH. BED IN LOWEST AND LOCKED POSITION. BED ALARM ON. HOB ELEVATED. HEELS OFFLOADED.
[2021-02-21 20:00] VITALS: BP 137/70
[2021-02-21] MEDS: ATORVASTATIN 10 MG TABLET PO SCH (22:47)
[2021-02-22] MEDS: ALBUTEROL FS 2.5 MG/3 ML VIAL.NEB NEB SCH ×4 (01:13→19:49)
--- NOTE | 2021-02-22 01:17 | NUR ---
pt refused breathing tx at this time. no respiratory distress noted.
[2021-02-22] MEDS: MEROPENEM 1 G in IV NS 0.9% 100 ML IV SCH (02:49)
[2021-02-22] MEDS: IV NS 0.9% 1,000 ML IV PRN (02:49)
[2021-02-22 06:50] LABS: BASOPHILS % (AUTO) 0.6 % (0.0-2.0); HEMATOCRIT 36 % (33-45); HEMOGLOBIN 11.6 g/dL (11.5-14.8); LYMPHOCYTES # (AUTO) 1.2 K/uL (0.8-4.8); LYMPHOCYTES % (AUTO) 19.9 % (20.0-44.0); MEAN CORPUSCULAR HGB CONC 33 g/dl (31.0-36.0); MEAN CORPUSCULAR VOLUME 93 fL (82-100); MONOCYTES # (AUTO) 0.6 K/uL (0.1-1.30); MONOCYTES % (AUTO) 9.9 % (2.0-12.0); NEUTROPHILS # (AUTO) 3.9 K/uL (1.8-8.9); NEUTROPHILS % (AUTO) 64.6 % (43.0-81.0); PLATELET COUNT (AUTO) 118 K/uL (150-450); RED BLOOD CELL COUNT(AUTO) 3.82 MIL/uL (4.0-5.2)
[2021-02-22 07:22] LABS: CALCIUM, SERUM 7.2 mg/dL (8.5-10.1); CREATININE 0.7 mg/dL (0.6-1.3); PHOSPHORUS 2.1 mg/dL (2.5-4.9); POTASSIUM 3.7 mmol/L (3.5-5.1)
--- NOTE | 2021-02-22 07:45 | NUR ---
MS/RN OPENING NOTES RECEIVED PATIENT IN BED, AWAKE, A/O X2. STABLE ON ROOM AIR, TOLERATING WELL. NO SOB NOTED. NOT IN DISTRESS. WITH NO COMPLAINTS OF PAIN AT THIS TIME. WITH IV ACCESS ON LEFT HAND #22G WITH IVF NS AT 100ML/HR. SAFETY MEASURES IN PLACED: BED LOCKED ON LOWEST LOCKED POSITION, SIDE RAILS UPX2, CALL LIGHT WITHIN EASY REACH. WILL CONTINUE TO MONITOR.
[2021-02-22] MEDS: BUDESONIDE RESPULE INH 0.5 MG/2 ML AMPUL.NEB IH SCH ×2 (07:55→19:48)
[2021-02-22 08:00] VITALS: BP 150/71
[2021-02-22] MEDS: FAMOTIDINE (20 MG) 20 MG TABLET PO SCH (09:00)
[2021-02-22] MEDS: ASPIRIN EC 81 MG TABLET.DR PO SCH (09:00)
[2021-02-22] MEDS: Z GUARD REMEDY 2 OZ OINT TP SCH (09:00)
[2021-02-22] MEDS: CALCIUM CARB 600MG /VIT D 1 EACH TABLET PO SCH (09:00)
[2021-02-22] MEDS: LEVOTHYROXINE SODIUM 100 MCG TABLET PO SCH (09:00)
[2021-02-22] MEDS: ENSURE ENLIVE CHOC 237 ML CAN PO SCH ×2 (09:01→17:58)
[2021-02-22] MEDS: MEROPENEM 500 MG in IV NS 0.9% 50 ML IV SCH ×2 (12:41→21:33)
[2021-02-22] MEDS ORDERED: Sodium Phosphate 30 MMOL in IV NS 0.9% 250 ML IV SCH (13:00)
[2021-02-22 16:00] VITALS: BP 146/74
--- NOTE | 2021-02-22 19:22 | NUR ---
MS/RN CLOSING NOTES PATIENT IN BED, AWAKE, A/O X2. STABLE ON ROOM AIR, TOLERATING WELL. NO SOB NOTED. NOT IN DISTRESS. WITH NO COMPLAINTS OF PAIN AT THIS TIME. WITH IV ACCESS ON LEFT HAND #22G WITH IVF NS AT 100ML/HR. ALL NEEDS MET. KEPT PATIENT COMFORTABLE. SAFETY MEASURES IN PLACED: BED LOCKED ON LOWEST LOCKED POSITION, SIDE RAILS UPX2, CALL LIGHT WITHIN EASY REACH. WILL ENDORSE TO THE NEXT SHIFT FOR PRISCILLA.
--- NOTE | 2021-02-22 19:40 | NUR ---
MS RN OPENING NOTES RECEIVED PATIENT IN BED, AWAKE, A/O X2. ON RA AND TOLERATING WELL. NO SOB NOTED. NO S/SX OF RESPIRATORY DISTRESS NOTED. IV ACCESS IN LEFT HAND #22G WITH IVF NS AT 100ML/HR. SAFETY MEASURES IN PLACED: BED IN LOWEST, LOCKED POSITION, SIDE RAILS UPX2, BRAKES ON. CALL LIGHT AND TABLE WITHIN REACH. WILL CONTINUE TO MONITOR.
[2021-02-22 20:00] VITALS: BP 159/87
[2021-02-22] MEDS: ATORVASTATIN 10 MG TABLET PO SCH (21:33)
[2021-02-23] MEDS: ALBUTEROL FS 2.5 MG/3 ML VIAL.NEB NEB SCH ×4 (01:44→19:41)
[2021-02-23] MEDS: MEROPENEM 500 MG in IV NS 0.9% 50 ML IV SCH ×3 (04:02→20:31)
[2021-02-23] MEDS: IV NS 0.9% 1,000 ML IV PRN ×2 (04:31→19:37)
[2021-02-23 06:45] LABS: CALCIUM, SERUM 7.6 mg/dL (8.5-10.1); CREATININE 0.7 mg/dL (0.6-1.3); POTASSIUM 3.7 mmol/L (3.5-5.1)
--- NOTE | 2021-02-23 06:51 | NUR ---
MS RN CLOSING NOTES PATIENT IN BED, ASLEEP, AWAKENS TO VERBAL STIMULI. A/O X2. ON RA AND TOLERATING WELL. NO SOB NOTED. NO S/SX OF RESPIRATORY DISTRESS NOTED. IV ACCESS IN LEFT HAND #22G WITH IVF NS AT 100ML/HR. ALL NEEDS MET. PT KEPT CLEAN AND DRY. SAFETY MEASURES IN PLACED: BED IN LOWEST, LOCKED POSITION, SIDE RAILS UPX2, BRAKES ON. CALL LIGHT AND TABLE WITHIN REACH. WILL ENDORSE TO ONCOMING SHIFT.
[2021-02-23 07:11] LABS: BASOPHILS % (AUTO) 0.6 % (0.0-2.0); EOSINOPHILS % (AUTO) 4.5 % (0.0-6.0); HEMATOCRIT 34 % (33-45); HEMOGLOBIN 11.3 g/dL (11.5-14.8); LYMPHOCYTES # (AUTO) 1.6 K/uL (0.8-4.8); LYMPHOCYTES % (AUTO) 27.6 % (20.0-44.0); MEAN CORPUSCULAR HGB CONC 33 g/dl (31.0-36.0); MEAN CORPUSCULAR VOLUME 93 fL (82-100); MONOCYTES # (AUTO) 0.7 K/uL (0.1-1.30); MONOCYTES % (AUTO) 11.3 % (2.0-12.0); NEUTROPHILS # (AUTO) 3.3 K/uL (1.8-8.9); PLATELET COUNT (AUTO) 124 K/uL (150-450); WHITE BLOOD COUNT (AUTO) 5.9 K/uL (4.3-11.0)
[2021-02-23] MEDS: BUDESONIDE RESPULE INH 0.5 MG/2 ML AMPUL.NEB IH SCH ×2 (07:50→19:41)
[2021-02-23] MEDS: LEVOTHYROXINE SODIUM 100 MCG TABLET PO SCH (07:53)
[2021-02-23] MEDS: FAMOTIDINE (20 MG) 20 MG TABLET PO SCH (07:53)
--- NOTE | 2021-02-23 07:58 | NUR ---
RN NOTES RT CURRENTLY AT BEDSIDE FOR BREATHING TX. AM MEDICATION GIVEN TO PATIENT.
[2021-02-23] MEDS: Z GUARD REMEDY 2 OZ OINT TP SCH (08:22)
[2021-02-23] MEDS: CALCIUM CARB 600MG /VIT D 1 EACH TABLET PO SCH (08:26)
[2021-02-23] MEDS: ASPIRIN EC 81 MG TABLET.DR PO SCH (08:26)
[2021-02-23] MEDS: ENSURE ENLIVE CHOC 237 ML CAN PO SCH ×2 (08:32→17:25)
--- NOTE | 2021-02-23 08:37 | NUR ---
RN NOTES REST OF AM MEDS GIVEN TO PATIENT INDICATED. PATIENT CURRENTLY EATING BREAKFAST IN BED, NOT IN ACUTE DISTRESS. BEDSIDE REPORT AND ENDORSEMENT GIVEN TO DORIS HOLLY, FOR CONTINUITY OF CARE.
[2021-02-23 08:58] VITALS: BP_SYST 149; BP_SYST 185; BP_DIAS 81; BP_DIAS 93
[2021-02-23 20:00] VITALS: BP 138/48
--- NOTE | 2021-02-23 20:29 | NUR ---
received in bed watching TV alert and orientated x3 speech clear IV site clean Infusing IV bed alarm on resp even and unlabored
[2021-02-23] MEDS: ATORVASTATIN 10 MG TABLET PO SCH (21:37)
[2021-02-24] MEDS: ALBUTEROL FS 2.5 MG/3 ML VIAL.NEB NEB SCH ×4 (01:30→19:39)
--- NOTE | 2021-02-24 01:38 | NUR ---
RT PATIENT REFUSED HER 129 HHN TREATMENT, PATIENT WAS SLEEPING . PATIENT STABLE AT THIS TIME. Addendum: 02/24/21 at 0141 by CANDELARIO BESS RT Amended: Links added.
--- NOTE | 2021-02-24 04:20 | NUR ---
ENDING NOTES: SLEPT THRU THE NIGHT COOPERATIVE ABOUT BEING TURNED AND REPOSITIONED VERBALIZES HER NEEDS INCONTINENT UA KEPT DRY AND CLEAN NO SOB THIS 12 HOURS AFEBRILE ATBS CONTINUED
[2021-02-24] MEDS: IV NS 0.9% 1,000 ML IV PRN (04:31)
[2021-02-24] MEDS: MEROPENEM 500 MG in IV NS 0.9% 50 ML IV SCH ×3 (04:31→21:48)
[2021-02-24] MEDS: BUDESONIDE RESPULE INH 0.5 MG/2 ML AMPUL.NEB IH SCH ×2 (07:10→19:40)
[2021-02-24 07:17] LABS: BASOPHILS # (AUTO) 0.1 K/uL (0.0-0.2); BASOPHILS % (AUTO) 0.9 % (0.0-2.0); EOSINOPHILS % (AUTO) 7.5 % (0.0-6.0); HEMATOCRIT 34 % (33-45); HEMOGLOBIN 11.2 g/dL (11.5-14.8); LYMPHOCYTES # (AUTO) 1.7 K/uL (0.8-4.8); LYMPHOCYTES % (AUTO) 25.9 % (20.0-44.0); MEAN CORPUSCULAR HGB CONC 33 g/dl (31.0-36.0); MEAN CORPUSCULAR VOLUME 93 fL (82-100); MONOCYTES # (AUTO) 0.7 K/uL (0.1-1.30); MONOCYTES % (AUTO) 10.2 % (2.0-12.0); NEUTROPHILS # (AUTO) 3.6 K/uL (1.8-8.9); NEUTROPHILS % (AUTO) 55.5 % (43.0-81.0); PLATELET COUNT (AUTO) 142 K/uL (150-450); RED BLOOD CELL COUNT(AUTO) 3.65 MIL/uL (4.0-5.2); WHITE BLOOD COUNT (AUTO) 6.4 K/uL (4.3-11.0)
[2021-02-24 07:24] LABS: CALCIUM, SERUM 7.3 mg/dL (8.5-10.1); CREATININE 0.8 mg/dL (0.6-1.3)
[2021-02-24 08:00] VITALS: BP 144/64
--- NOTE | 2021-02-24 08:18 | NUR ---
MS RN OPENING NOTES: RECEIVED PATIENT IN BED, AWAKE, A/O X2. PATIENT ON ROOM AIR; BREATHING EVEN AND UNLABORED, NO SOB NOTED. NO COMPLAINS OF PAIN. L WRIST IV ACCESS G # 20 PRESENT AND INTACT RUNNING NS @ 100 MLS/HR. SAFETY PRECAUTIONS IN PLACE; BED IN LOW POSITION AND LOCKED, RAILS UP X2, CALL LIGHT WITHIN REACH. WILL CONTINUE TO MONITOR PATIENT.
[2021-02-24] MEDS: CALCIUM CARB 600MG /VIT D 1 EACH TABLET PO SCH (08:37)
[2021-02-24] MEDS: FAMOTIDINE (20 MG) 20 MG TABLET PO SCH (08:37)
[2021-02-24] MEDS: Z GUARD REMEDY 2 OZ OINT TP SCH (08:38)
[2021-02-24] MEDS: ENSURE ENLIVE CHOC 237 ML CAN PO SCH ×2 (08:38→17:32)
[2021-02-24] MEDS: LEVOTHYROXINE SODIUM 100 MCG TABLET PO SCH (08:38)
[2021-02-24] MEDS: ASPIRIN EC 81 MG TABLET.DR PO SCH (08:38)
--- NOTE | 2021-02-24 10:22 | NUR ---
MS RN NOTES ENDORSED PATIENT FOR PRISCILLA TO NURSE HARJIT
[2021-02-24 16:00] VITALS: BP 159/77
--- NOTE | 2021-02-24 17:50 | NUR ---
removed iv.then bandage applied.
--- NOTE | 2021-02-24 18:00 | NUR ---
no change in status.
--- NOTE | 2021-02-24 18:30 | NUR ---
attempted restart in lt. forearm,without success.
--- NOTE | 2021-02-24 19:10 | NUR ---
MS/RN OPENING NOTE RECEIVED PATIENT RESTING IN BED. AWAKE, ALERT AND ORIENTED X 2-3. FORGETFUL AT TIMES. ABLE TO MAKE NEEDS KNOWN. DENIES PAIN AT THIS TIME. CONTINUES ON ROOM AIR WITH NO S/SX OF RESPIRATORY DISTRESS NOTED. NO IV ACCESS AT THIS TIME - WILL ATTEMPT IV INSERTION THIS SHIFT. CALL LIGHT WITHIN REACH. ASPIRATION, FALL AND SAFETY PRECAUTIONS MAINTAINED. WILL CONTINUE TO MONITOR.
[2021-02-24 20:00] VITALS: BP 110/51
--- NOTE | 2021-02-24 21:00 | NUR ---
MS/RN NOTE IV INSERTED TO LEFT WRIST #20G. PATIENT TOLERATED WELL WITH MINIMAL BLEEDING NOTED. IV FLUSHES WITH BLOOD RETURN. EDUCATED PATIENT ON IMPORTANCE OF MAINTAINING IV ACCESS WITH PATIENT VERBALLY UNDERSTANDING. WILL CONTINUE TO MONITOR.
[2021-02-24] MEDS: ATORVASTATIN 10 MG TABLET PO SCH (22:35)
[2021-02-25] MEDS: ALBUTEROL FS 2.5 MG/3 ML VIAL.NEB NEB SCH ×4 (01:30→19:30)
--- NOTE | 2021-02-25 02:01 | NUR ---
PT REFUSED 1:30 BREATHING TX . PT IS ASLEEP. DORIS HORTON NOTIFIED
[2021-02-25] MEDS: MEROPENEM 500 MG in IV NS 0.9% 50 ML IV SCH ×3 (04:54→21:10)
--- NOTE | 2021-02-25 06:10 | NUR ---
MS/RN CLOSING NOTE PATIENT CURRENTLY SLEEPING IN BED. ALERT AND ORIENTED X 2-3. FORGETFUL AT TIMES. ABLE TO MAKE NEEDS KNOWN. DENIES PAIN AT THIS TIME. CONTINUES ON ROOM AIR WITH NO S/SX OF RESPIRATORY DISTRESS NOTED. IV ACCESS TO LEFT WRIST #20G INTACT, PATENT AND SALINE LOCKED. CALL LIGHT WITHIN REACH. ASPIRATION, FALL AND SAFETY PRECAUTIONS MAINTAINED. WILL ENDORSE PLAN OF CARE TO ONCOMING SHIFT.
[2021-02-25 06:31] LABS: CALCIUM, SERUM 7.8 mg/dL (8.5-10.1); CREATININE 0.8 mg/dL (0.6-1.3); POTASSIUM 4.1 mmol/L (3.5-5.1)
[2021-02-25 06:51] LABS: BASOPHILS % (AUTO) 0.5 % (0.0-2.0); EOSINOPHILS % (AUTO) 7.5 % (0.0-6.0); HEMATOCRIT 35 % (33-45); HEMOGLOBIN 11.6 g/dL (11.5-14.8); LYMPHOCYTES # (AUTO) 2.1 K/uL (0.8-4.8); MEAN CORPUSCULAR HGB CONC 33 g/dl (31.0-36.0); MEAN CORPUSCULAR VOLUME 93 fL (82-100); MONOCYTES # (AUTO) 0.6 K/uL (0.1-1.30); MONOCYTES % (AUTO) 8.3 % (2.0-12.0); NEUTROPHILS # (AUTO) 4.3 K/uL (1.8-8.9); NEUTROPHILS % (AUTO) 56.7 % (43.0-81.0); PLATELET COUNT (AUTO) 169 K/uL (150-450); RED BLOOD CELL COUNT(AUTO) 3.73 MIL/uL (4.0-5.2); WHITE BLOOD COUNT (AUTO) 7.6 K/uL (4.3-11.0)
--- NOTE | 2021-02-25 07:11 | NUR ---
MS/RN OPENING NOTE RECEIVED PATIENT RESTING IN BED. AWAKE, ALERT AND ORIENTED X 2-3. FORGETFUL AT TIMES. ABLE TO MAKE NEEDS KNOWN. DENIES PAIN AT THIS TIME. PATIENT IS BREATHING EVENLY AND NONLABORED CONTINUES ON ROOM AIR WITH NO S/SX OF RESPIRATORY DISTRESS NOTED.PATIENT HAS IV ACCESS TO L WRIST # 20 GAUGE PATENT AND INTACT. CALL LIGHT WITHIN REACH. ASPIRATION, FALL AND SAFETY PRECAUTIONS MAINTAINED. WILL CONTINUE TO MONITOR.
[2021-02-25] MEDS: BUDESONIDE RESPULE INH 0.5 MG/2 ML AMPUL.NEB IH SCH ×2 (07:16→20:00)
[2021-02-25 08:00] VITALS: BP 135/79
[2021-02-25] MEDS: CALCIUM CARB 600MG /VIT D 1 EACH TABLET PO SCH (08:06)
[2021-02-25] MEDS: LEVOTHYROXINE SODIUM 100 MCG TABLET PO SCH (08:06)
[2021-02-25] MEDS: ASPIRIN EC 81 MG TABLET.DR PO SCH (08:06)
[2021-02-25] MEDS: FAMOTIDINE (20 MG) 20 MG TABLET PO SCH (08:06)
[2021-02-25] MEDS: ENSURE ENLIVE CHOC 237 ML CAN PO SCH ×2 (08:06→16:51)
[2021-02-25] MEDS: Z GUARD REMEDY 2 OZ OINT TP SCH (08:09)
[2021-02-25 16:00] VITALS: BP 118/59
--- NOTE | 2021-02-25 18:16 | NUR ---
MS/RN CLOSING NOTE PATIENT RESTING IN BED. AWAKE, ALERT AND ORIENTED X 2-3. FORGETFUL AT TIMES. ABLE TO MAKE NEEDS KNOWN. DENIES PAIN AT THIS TIME. PATIENT IS BREATHING EVENLY AND NONLABORED CONTINUES ON ROOM AIR WITH NO S/SX OF RESPIRATORY DISTRESS NOTED.PATIENT HAS IV ACCESS TO L WRIST # 20 GAUGE PATENT AND INTACT. ALL MEDICATION WAS GIVEN ORDERED. CALL LIGHT WITHIN REACH. ASPIRATION, FALL AND SAFETY PRECAUTIONS MAINTAINED. WILL ENDORSE TO ONCOMING SHIFT
--- NOTE | 2021-02-25 19:57 | NUR ---
MS RN OPENING NOTE PATIENT RESTING IN BED. A/OX 2-3; FORGETFUL AT TIMES. ABLE TO MAKE NEEDS KNOWN. DENIES PAIN AT THIS TIME. TOLERATING R/A WELL WITH NO SOB OR RESPIRATORY DISTRESS. RT AT PT'S BEDSIDE. L WRIST # 20G; PATENT AND INTACT. SAFETY MEASURES IN PLACE: BED IN LOWEST LOCKED POSITION, CALL LIGHT WITHIN EASY REACH, BED ALARM ON. PT IN STABLE CONDITION; WILL CONTINUE PLAN OF CARE.
[2021-02-25 20:00] VITALS: BP 115/54
--- NOTE | 2021-02-25 20:06 | NUR ---
RT NOTE PT REFUSED TX AT THIS TIME. NO RESPIRATORY DISTRESS NOTED. DORIS STEPHENS NOTIFIED.
[2021-02-25] MEDS: ATORVASTATIN 10 MG TABLET PO SCH (21:10)
[2021-02-26] MEDS: ALBUTEROL FS 2.5 MG/3 ML VIAL.NEB NEB SCH ×3 (01:30→12:34)
--- NOTE | 2021-02-26 01:34 | NUR ---
RT NOTE PT REFUSED TX AT THIS TIME. PT WANTS TO SLEEP. NO RESPIRATORY DISTRESS NOTED. RN KAT NOTIFIED.
[2021-02-26] MEDS: MEROPENEM 500 MG in IV NS 0.9% 50 ML IV SCH ×2 (05:16→12:29)
--- NOTE | 2021-02-26 06:09 | NUR ---
MS RN CLOSING NOTE PATIENT RESTING IN BED. A/OX 2; FORGETFUL AT TIMES. ABLE TO MAKE NEEDS KNOWN. DENIES PAIN AT THIS TIME. TOLERATING R/A WELL WITH NO SOB OR RESPIRATORY DISTRESS. L WRIST #20G; PATENT AND INTACT. SAFETY MEASURES IN PLACE: BED IN LOWEST LOCKED POSITION, CALL LIGHT WITHIN EASY REACH, BED ALARM ON. PT IN STABLE CONDITION; WILL ENDORSE PLAN OF CARE TO ONCOMING MORNING RN.
[2021-02-26] MEDS: BUDESONIDE RESPULE INH 0.5 MG/2 ML AMPUL.NEB IH SCH (07:00)
--- NOTE | 2021-02-26 07:21 | NUR ---
MS RN OPENING NOTES RECEIVED PATIENT RESTING IN BED, AWAKE A/OX 2; WITH PERIODS OF FORGETFULNESS AT TIMES. ABLE TO MAKE NEEDS KNOWN. DENIES OF PAIN OR DISCOMFORT AT THIS TIME. ON ROOM AIR TOLERATING WELL WITH NO SOB OR RESPIRATORY DISTRESS NOTED. PATIENT WITH L WRIST IV #20G, PATENT AND INTACT. SAFETY MEASURES IN PLACE: BED IN LOWEST LOCKED POSITION, CALL LIGHT WITHIN EASY REACH, BED ALARM ON. WILL CONTINUE TO MONITOR PATIENT ACCORDINGLY
[2021-02-26 08:00] VITALS: BP 106/60
[2021-02-26 08:03] LABS: BASOPHILS # (AUTO) 0.1 K/uL (0.0-0.2); BASOPHILS % (AUTO) 0.9 % (0.0-2.0); HEMATOCRIT 34 % (33-45); HEMOGLOBIN 11.3 g/dL (11.5-14.8); LYMPHOCYTES # (AUTO) 1.7 K/uL (0.8-4.8); LYMPHOCYTES % (AUTO) 27.1 % (20.0-44.0); MEAN CORPUSCULAR HGB CONC 33 g/dl (31.0-36.0); MEAN CORPUSCULAR VOLUME 93 fL (82-100); MONOCYTES # (AUTO) 0.5 K/uL (0.1-1.30); MONOCYTES % (AUTO) 7.3 % (2.0-12.0); NEUTROPHILS # (AUTO) 3.6 K/uL (1.8-8.9); NEUTROPHILS % (AUTO) 56.7 % (43.0-81.0); PLATELET COUNT (AUTO) 203 K/uL (150-450); RED BLOOD CELL COUNT(AUTO) 3.64 MIL/uL (4.0-5.2); WHITE BLOOD COUNT (AUTO) 6.3 K/uL (4.3-11.0)
[2021-02-26 08:05] LABS: CREATININE 0.7 mg/dL (0.6-1.3); POTASSIUM 3.9 mmol/L (3.5-5.1)
[2021-02-26] MEDS: ASPIRIN EC 81 MG TABLET.DR PO SCH (08:07)
[2021-02-26] MEDS: FAMOTIDINE (20 MG) 20 MG TABLET PO SCH (08:07)
[2021-02-26] MEDS: LEVOTHYROXINE SODIUM 100 MCG TABLET PO SCH (08:07)
[2021-02-26] MEDS: CALCIUM CARB 600MG /VIT D 1 EACH TABLET PO SCH (08:07)
[2021-02-26] MEDS: Z GUARD REMEDY 2 OZ OINT TP SCH (08:14)
[2021-02-26] MEDS: ENSURE ENLIVE CHOC 237 ML CAN PO SCH ×2 (08:16→17:13)
[2021-02-26 16:00] VITALS: BP 140/61
--- NOTE | 2021-02-26 18:16 | NUR ---
RN DISCHARGED NOTES PT DISCHARGED TO [facility] IN STABLE CONDITION. PT IS A/O X2-3. VERBALLY RESPONSIVE. V/S TAKEN, STABLE AND RECORDED. PHOTOS OF SKIN ISSUES TAKEN AND FILED ON HER CHART. ALL BELONGINGS ACCOUNTED FOR. CALLED AND REPORT GIVEN TO DORIS BECKMAN AND SHE VERBALIZED UNDERSTANDING OF DISCHARGE ORDERS. IV ACCESS NOT REMOVED, PT WILL CONTINUE TO RECEIVE IV ABX MERREM Q8HRS X 7 DAYS MORE. PT'S DPOA SONA JEFFRIES INFORMED VIA TELEPHONE OF PT'S TRANSFER TO [facility]. PT LEFT UNIT AT 1810 VIA TOM ACCOMPANIED BY 2 PROCUREMENT INTERN' FROM [facility]. CHARGE NURSE AWARE OF DISCHARGE.
== END 2021-02-26 18:25 | DRG 853 ==
LOC: ER 14:49 → TELE 17:11 → MED 02-19 12:58
PROVIDERS: ADMIT Nurse Practitioner Acute Care; ATTEND Nurse Practitioner Acute Care
PROC: 0T768DZ Dilation of Right Ureter with Intraluminal Device, Via Natural or Artificial Opening Endoscopic (ICD-10-PCS; principal; 2021-02-18)
DX: A41.9 Sepsis, unspecified organism (principal); G92.8 Other toxic encephalopathy; N17.0 Acute kidney failure with tubular necrosis; N13.6 Pyonephrosis; Z20.822 Contact with and (suspected) exposure to COVID-19; K57.90 Diverticulosis of intestine, part unspecified, without perforation or abscess without bleeding; F03.90 Unspecified dementia, unspecified severity, without behavioral disturbance, psychotic disturbance, mood disturbance, and anxiety; Z86.16 Personal history of COVID-19; E78.5 Hyperlipidemia, unspecified; K59.00 Constipation, unspecified; E03.9 Hypothyroidism, unspecified; Z88.0 Allergy status to penicillin; E83.39 Other disorders of phosphorus metabolism; Z87.442 Personal history of urinary calculi; Z90.49 Acquired absence of other specified parts of digestive tract; A41.51 Sepsis due to Escherichia coli [E. coli]
CPT/HCPCS: 36415; 71045-TC; 74018; 80048-TC; 80061-TC; 80076-TC; 80202-TC; 81001; 83605-TC; 83690-TC; 83735-TC; 84100-TC; 84484-TC; 85025-TC; 85730-TC; 86850-TC; 87040-TC; 87081-TC; 87086-TC; 87186-TC; 94799-TC; 97112-TC; 97530-TC; A4217; A9563; C2617; G0378; J0330; J1100; J2185; J2405; J2704; J3010; J3370; J3490; J7030; J7050; J7060; Q9966; Q9967; U0003